=== PATIENT | female | born 1980 | race Hispanic/Latino ===

== ENCOUNTER 2025-05-08 06:33 | Day surgery (SDC) | payer MEDICAID ==
[~2025-05-08] VITALS: Ht 154.9 cm; Wt 56.7 kg
[2025-05-08] VITALS (12 sets, daily range): BP systolic 100–114; BP diastolic 50–67; PULSE 71–89; RESP 14–16; TEMP 97–97.7
[2025-05-08] MEDS ORDERED: ALLO100T PO (08:24)
[2025-05-08] MEDS ORDERED: ZOLP5TAB8 PO (08:24)
[2025-05-08] MEDS ORDERED: LEVO75TA10 PO (08:24)
[2025-05-08] MEDS ORDERED: CARV25TA PO (08:24)
[2025-05-08] MEDS ORDERED: FOLI0.8C PO (08:24)
[2025-05-08] MEDS ORDERED: MYCOPHENOLATE PO (08:24)
[2025-05-08] MEDS ORDERED: NEPHROVITE PO (08:24)
[2025-05-08] MEDS ORDERED: MEGE400O39 PO (08:24)
[2025-05-08] MEDS ORDERED: ESOM40CA PO (08:24)
[2025-05-08] MEDS ORDERED: CYAN-35 PO (08:24)
[2025-05-08] MEDS ORDERED: SIRO0.5T3 PO (08:24)
[2025-05-08] MEDS ORDERED: ERGO500093 PO (08:24)
[2025-05-08] MEDS: 0.9%NACL 1000ML 1,000 ML IV ONE (09:25)
[2025-05-08] MEDS ORDERED: proPOFol 10 MG/ML 20ML VIAL IV ONE (10:18)
[2025-05-08] MEDS ORDERED: LIDOCAINE PF 100MG/5ML (2%) SYRINGE 5ML ONE (10:19)
== END 2025-05-08 12:00 | disposition home or self-care (01) ==
LOC: ENDO 06:33 → DAH 06:33 → ENDO 12:00
PROVIDERS: ATTEND Internal Medicine Gastroenterology
DX: K52.9 Noninfective gastroenteritis and colitis, unspecified (principal); K29.50 Unspecified chronic gastritis without bleeding; D12.2 Benign neoplasm of ascending colon; R11.2 Nausea with vomiting, unspecified; R93.3 Abnormal findings on diagnostic imaging of other parts of digestive tract; K20.90 Esophagitis, unspecified without bleeding; K57.30 Diverticulosis of large intestine without perforation or abscess without bleeding; I10 Essential (primary) hypertension; F41.9 Anxiety disorder, unspecified; F32.A Depression, unspecified; E03.9 Hypothyroidism, unspecified; Z94.0 Kidney transplant status; M81.0 Age-related osteoporosis without current pathological fracture; Z96.643 Presence of artificial hip joint, bilateral; Z98.890 Other specified postprocedural states; Z79.899 Other long term (current) drug therapy
CPT/HCPCS: 45380; 43239; 84703; 36415; J7030; J2003; J2704; A4215; A4223; A4222; A4221; A4663; A4606; J3490